=== PATIENT | male | born 1995 | race Caucasian/White ===

== ENCOUNTER 2018-09-06 20:21 | Emergency (ER) | payer OTHER, SELFPAY ==
[2018-09-06 20:25] VITALS: BP 131/80; PULSE 94; RESP 17; TEMP 36.6; O2SAT 98
--- NOTE | 2018-09-06 20:27 | DI.RAD.S_ITS ---
PROCEDURE: XR HAND RT MIN 3V INDICATIONS: crush injury of right hand TECHNIQUE: 3 views of the hand(s) acquired. COMPARISON: None. FINDINGS: Bones: No fractures or dislocations. Carpal bones are normally aligned. No suspicious bony lesions. Soft tissues: No suspicious soft tissue calcifications. IMPRESSION: Intact right hand. Dictated by: Rubi Dupree M.D. on 09/06/2018 at 21:27 Approved by: Rubi Dupree M.D. on 09/06/2018 at 21:28
--- NOTE | 2018-09-06 21:08 | ED.UPPEXIN ---
HPI - Extremity Injury (Upper) General Chief Complaint: Extremity Injury, Upper Stated Complaint: RT HAND INJURY Time Seen by Provider: 09/06/18 20:39 Source: patient Mode of arrival: ambulatory Limitations: no limitations History of Present Illness HPI narrative: 23-year-old male nonsmoker and otherwise healthy presents with a chief complaint of right hand pain and swelling after it was stepped on while playing soccer earlier today. He has full but painful range of motion and swelling on the dorsum of his hand. There is no break in the skin and he denies other injury. He has no history of hand or wrist pain MD complaint: injury to: right Onset (ago): hour(s) Other injuries: none Handedness: right Place: outdoors Severity: moderate Relieving factors: none Exacerbating factors: movement of extremity Context: direct blow Associated symptoms: denies other symptoms Related Data Allergies Allergy/AdvReac Type Severity Reaction Status Date / Time No Known Drug Allergies Allergy Verified 09/06/18 20:25 Review of Systems Constitutional Denies chills, Denies fever(s), Denies lethargy and Denies weakness Eyes Denies change in vision, Denies eye discharge, Denies irritation and Denies loss of vision ENT Ears, Nose, Mouth, and Throat: Denies change in voice, Denies neck pain and Denies sore throat Cardiovascular Denies chest pain, Denies irregular heart rhythm, Denies lightheadedness, Denies palpitations, Denies dyspnea, Denies dyspnea on exertion and Denies orthopnea Respiratory Denies cough, Denies dyspnea, Denies dyspnea on exertion and Denies wheezing Gastrointestinal Gastrointestinal: Denies abdominal pain, Denies change in bowel habits, Denies diarrhea, Denies nausea and Denies vomiting Genitourinary Denies hematuria, Denies flank pain, Denies urinary incontinence and Denies urinary urgency Musculoskeletal Reports joint swelling, Reports limited range of motion and Denies neck pain Integumentary/Breasts Denies pruritus, Denies erythema, Denies rash and Denies wounds Neurologic Denies confusion, Denies loss of vision and Denies weakness Psychiatric Denies anxiety, Denies confusion, Denies depression, Denies homicidal ideation and Denies suicidal ideation Endocrine Denies palpitations Hematologic/Lymphatic Denies easy bruising Allergic/Immunologic Denies wheezing PFSH Social History Smoking Status: Never smoker Social History (Reviewed 06/05/19 @ 02:46 by SALONI Jorge Smoking Status: Never smoker Exam Narrative Exam Narrative: GEN: AOx3 and in mild distress EYES: Pupils are equal, round, and reactive to light and accommodation. Extraoccular muscles are intact bilaterally. There is no subconjunctival hemorrhage or exudate. CHEST: Lungs are clear to auscultation bilaterally and free of wheezes, rales, or rhonchi. Heart rate is regular rhythm, there are no murmurs, clicks, rubs, or gallops. There is no chest wall tenderness. ABD: Abdomen is soft and nontender. There is no guarding or rebound. Bowel sounds are normal in all 4 quadrants. There is no mass or organomegaly. EXT: Slight decreased range of motion of the right hand secondary to pain. Notable swelling on the dorsum of the hand but no break in the skin. Neurovascularly intact. SKIN: Warm, pink, and dry. No erythema or rash Initial Vital Signs Initial Vital Signs: Vital Signs Temperature 97.9 F 09/06/18 20:25 Pulse Rate 94 H 09/06/18 20:25 Respiratory Rate 17 09/06/18 20:25 Blood Pressure 131/80 09/06/18 20:25 Pulse Oximetry 98 09/06/18 20:25 Procedures Orthopedic Splinting/Casting Injury #1: Side: right Upper Extremity Injury Location: hand Upper Extremity Immobilizer: volar splint Post splinting neuro exam: intact Post splinting vascular exam: intact Placed by: Nursing Course Orders Ordered: ED Orders 09/06/18 20:27 XR hand RT min 3V Stat Vital Signs - 8 hr 09/06/18 20:25 Temperature 97.9 F Pulse Rate 94 H Respiratory Rate 17 Blood Pressure 131/80 Pulse Oximetry 98 MDM - Extremity Injury (Upper) Imaging Data Hand Xray: Radiologist's impression: [address] [address] XRay Report Signed Patient: TANYA MONREAL [facility]#: [id number] : 1995Acct:[id number] Age/Sex: 23 / MDate of Service: 09/06/18 Loc: ED Accession Number: [id number] Procedure: XR hand RT min 3V Ordering Provider: Sher Green D.O. PROCEDURE: XR HAND RT MIN 3V INDICATIONS: crush injury of right hand TECHNIQUE: 3 views of the hand(s) acquired. COMPARISON: None. FINDINGS: Bones: No fractures or dislocations. Carpal bones are normally aligned. No suspicious bony lesions. Soft tissues: No suspicious soft tissue calcifications. IMPRESSION: Intact right hand. Dictated by: Rubi Dupree M.D. on 09/06/2018 at 21:27 Approved by: Rubi Dupree M.D. on 09/06/2018 at 21:28 Discharge Plan Departure Patient Disposition: Home Clinical Impression: Contusion of hand Qualifiers: Encounter type: initial encounter Laterality: right Qualified Code(s): S60.221A - Contusion of right hand, initial encounter Discharge Date/Time: 09/06/18 21:53 Interventions: ED Discharge Assessment Last Done: 09/06/18 21:52 Instructions: DI for Contusion Activity Restrictions/Additional Instructions: *You have been diagnosed with [ Right hand contusion ] *What to do: *Take medications as directed: tylenol or motrin for pain *Follow up with your primary care provider in 2-3 days, call for an appointment. Let them know you were seen in the Emergency Department and that we ask that you be seen in follow up *Return to ER if you should have any new, worsening or concerning symptoms
--- NOTE | 2018-09-07 02:30 | ED_ITS ---
HPI - Extremity Injury (Upper) General Chief Complaint: Extremity Injury, Upper Stated Complaint: RT HAND INJURY Time Seen by Provider: 09/06/18 20:39 Source: patient Mode of arrival: ambulatory Limitations: no limitations History of Present Illness HPI narrative: 23-year-old male nonsmoker and otherwise healthy presents with a chief complaint of right hand pain and swelling after it was stepped on while playing soccer earlier today. He has full but painful range of motion and swelling on the dorsum of his hand. There is no break in the skin and he denies other injury. He has no history of hand or wrist pain MD complaint: injury to: right Onset (ago): hour(s) Other injuries: none Handedness: right Place: outdoors Severity: moderate Relieving factors: none Exacerbating factors: movement of extremity Context: direct blow Associated symptoms: denies other symptoms Related Data Allergies Allergy/AdvReac Type Severity Reaction Status Date / Time No Known Drug Allergies Allergy Verified 09/06/18 20:25 Review of Systems Constitutional Denies chills, Denies fever(s), Denies lethargy and Denies weakness Eyes Denies change in vision, Denies eye discharge, Denies irritation and Denies loss of vision ENT Ears, Nose, Mouth, and Throat: Denies change in voice, Denies neck pain and Denies sore throat Cardiovascular Denies chest pain, Denies irregular heart rhythm, Denies lightheadedness, Denies palpitations, Denies dyspnea, Denies dyspnea on exertion and Denies orthopnea Respiratory Denies cough, Denies dyspnea, Denies dyspnea on exertion and Denies wheezing Gastrointestinal Gastrointestinal: Denies abdominal pain, Denies change in bowel habits, Denies diarrhea, Denies nausea and Denies vomiting Genitourinary Denies hematuria, Denies flank pain, Denies urinary incontinence and Denies urinary urgency Musculoskeletal Reports joint swelling, Reports limited range of motion and Denies neck pain Integumentary/Breasts Denies pruritus, Denies erythema, Denies rash and Denies wounds Neurologic Denies confusion, Denies loss of vision and Denies weakness Psychiatric Denies anxiety, Denies confusion, Denies depression, Denies homicidal ideation and Denies suicidal ideation Endocrine Denies palpitations Hematologic/Lymphatic Denies easy bruising Allergic/Immunologic Denies wheezing PFSH Social History Smoking Status: Never smoker Social History (Reviewed 06/05/19 @ 02:46 by SALONI Jorge Smoking Status: Never smoker Exam Narrative Exam Narrative: GEN: AOx3 and in mild distress EYES: Pupils are equal, round, and reactive to light and accommodation. Extraoccular muscles are intact bilaterally. There is no subconjunctival hemo rrhage or exudate. CHEST: Lungs are clear to auscultation bilaterally and free of wheezes, rales, or rhonchi. Heart rate is regular rhythm, there are no murmurs, clicks, rubs, or gallops. There is no chest wall tenderness. ABD: Abdomen is soft and nontender. There is no guarding or rebound. Bowel sounds are normal in all 4 quadrants. There is no mass or organomegaly. EXT: Slight decreased range of motion of the right hand secondary to pain. Notable swelling on the dorsum of the hand but no break in the skin. Neurovascularly intact. SKIN: Warm, pink, and dry. No erythema or rash Initial Vital Signs Initial Vital Signs: Vital Signs Temperature 97.9 F 09/06/18 20:25 Pulse Rate 94 H 09/06/18 20:25 Respiratory Rate 17 09/06/18 20:25 Blood Pressure 131/80 09/06/18 20:25 Pulse Oximetry 98 09/06/18 20:25 Procedures Orthopedic Splinting/Casting Injury #1: Side: right Upper Extremity Injury Location: hand Upper Extremity Immobilizer: volar splint Post splinting neuro exam: intact Post splinting vascular exam: intact Placed by: Nursing Course Orders Ordered: ED Orders 09/06/18 20:27 XR hand RT min 3V Stat Vital Signs - 8 hr 09/06/18 20:25 Temperature 97.9 F Pulse Rate 94 H Respiratory Rate 17 Blood Pressure 131/80 Pulse Oximetry 98 MDM - Extremity Injury (Upper) Imaging Data Hand Xray: Radiologist's impression: [address] [address] XRay Report Signed Patient: TANYA MONREAL [facility]#: [id number] : 1995Acct:[id number] Age/Sex: 23 / MDate of Service: 09/06/18 Loc: ED Accession Number: [id number] Procedure: XR hand RT min 3V Ordering Provider: Sher Green D.O. PROCEDURE: XR HAND RT MIN 3V INDICATIONS: crush injury of right hand TECHNIQUE: 3 views of the hand(s) acquired. COMPARISON: None. FINDINGS: Bones: No fractures or dislocations. Carpal bones are normally aligned. No suspicious bony lesions. Soft tissues: No suspicious soft tissue calcifications. IMPRESSION: Intact right hand. Dictated by: Rubi Dupree M.D. on 09/06/2018 at 21:27 Approved by: Rubi Dupree M.D. on 09/06/2018 at 21:28 Discharge Plan Departure Patient Disposition: Home Clinical Impression: Contusion of hand Qualifiers: Encounter type: initial encounter Laterality: right Qualified Code(s): S60.221A - Contusion of right hand, initial encounter Discharge Date/Time: 09/06/18 21:53 Interventions: ED Discharge Assessment Last Done: 09/06/18 21:52 Instructions: DI for Contusion Activity Restrictions/Additional Instructions: *You have been diagnosed with [ Right hand contusion ] *What to do: *Take medications as directed: tylenol or motrin for pain *Follow up with your primary care provider in 2-3 days, call for an appointment. Let them know you were seen in the Emergency Department and that we ask that you be seen in follow up *Return to ER if you should have any new, worsening or concerning symptoms
== END 2018-09-06 21:53 | disposition home or self-care (01) ==
PROVIDERS: Emergency Provider Emergency Medicine
DX: S60.211A Contusion of right wrist, initial encounter (principal); W50.0XXA Accidental hit or strike by another person, initial encounter; Y93.66 Activity, soccer
CPT/HCPCS: 73130; 99282; 99283